=== PATIENT | female | born 1965 | race Caucasian/White ===

== ENCOUNTER 2023-12-28 11:56 | Observation (INO) | payer OTHER ==
[2023-12-28 13:06] LABS: URINE APPEARANCE TURBID; URINE BILIRUBIN SMALL (NEGATIVE); URINE COLOR RED; URINE GLUCOSE (UA) NEGATIVE (NEGATIVE); URINE KETONE NEGATIVE (NEGATIVE)
[2023-12-28 13:07] LABS: HCG,QUALITATIVE URINE Negative; URINE PROTEIN 3+ (NEGATIVE); URINE RBC 1416 /uL (0-23.9); URINE UROBILINOGEN 0.2 mg/dL (0.2-1.0)
[2023-12-28 13:08] LABS: EPI CELLS 8.6 /uL (0-25.1); HYALINE CASTS 31.86 /uL (0-3.1); URINE BACTERIA 402.7 /uL (0-1359); URINE WBC 17 /uL (0-25.8)
[2023-12-28 13:37] LABS: BASO % 0.3 % (0-2.0); EOS % 0.6 % (0-4.5); HEMATOCRIT 36.7 % (32.4-45.2); HEMOGLOBIN 11.6 GM/dL (10.7-15.3); LYMPH % 22.9 % (8-40); MCH 22.5 pg (25.7-33.7); MCHC 31.7 g/dl (32.0-36.0); MEAN CELL VOLUME 70.9 fl (80-96); MEAN PLT VOLUME 8.4 fl (7.5-11.1); MONO % 6.1 % (3.8-10.2); NEUT % 70.1 % (42.8-82.8); PLATELET COUNT 173 10^3/uL (134-434); RBC 5.18 M/mm3 (3.60-5.2); RDW 19.4 % (11.6-15.6); WHITE BLOOD COUNT 5.8 K/mm3 (4.0-10.0)
[2023-12-28 14:09] LABS: INR 1.13 (0.83-1.09); PROTHROMBIN TIME (PATIENT) 12.9 SEC (9.7-13.0)
[2023-12-28 14:11] LABS: ACTIVATED PTT 32.3 SECONDS (25.2-36.5)
[2023-12-28 14:48] LABS: POTASSIUM 5.3 mmol/L (3.5-5.1)
[2023-12-28 14:52] LABS: ALBUMIN 3.7 g/dl (3.4-5.0); BLOOD UREA NITROGEN 11.4 mg/dL (7-18); CALCIUM 8.8 mg/dL (8.5-10.1); MAGNESIUM 2.2 mg/dL (1.8-2.4)
[2023-12-28 14:56] LABS: BILIRUBIN,TOTAL 0.4 mg/dL (0.2-1); CREATININE 0.6 mg/dL (0.55-1.3)
[2023-12-28 14:57] LABS: N-TERMINAL BNP 63.1 pg/ml (5-125)
[2023-12-28 15:01] LABS: HIV INTERPRETATION NEGATIVE (NEGATIVE)
[2023-12-28] MEDS ORDERED: ACETAMINOPHEN INJECTION 100 ML ONE (15:27)
[2023-12-28] MEDS: ACETAMINOPHEN 1000 MG/100 ML BAG IVPB ONE (15:47)
[2023-12-28 15:57] LABS: BASO % 0.3 % (0-2.0); EOS % 0.3 % (0-4.5); HEMATOCRIT 37.7 % (32.4-45.2); HEMOGLOBIN 11.7 GM/dL (10.7-15.3); LYMPH % 15.2 % (8-40); MCH 22.3 pg (25.7-33.7); MCHC 31.1 g/dl (32.0-36.0); MEAN CELL VOLUME 71.7 fl (80-96); MEAN PLT VOLUME 8.6 fl (7.5-11.1); NEUT % 79.2 % (42.8-82.8); PLATELET COUNT 188 10^3/uL (134-434); RBC 5.25 M/mm3 (3.60-5.2); RDW 19.8 % (11.6-15.6); WHITE BLOOD COUNT 8.6 K/mm3 (4.0-10.0)
[2023-12-28 16:15] LABS: POTASSIUM 4.6 mmol/L (3.5-5.1)
[2023-12-28 16:18] LABS: BLOOD UREA NITROGEN 11.2 mg/dL (7-18)
[2023-12-28 16:21] LABS: CREATININE 0.5 mg/dL (0.55-1.3)
[2023-12-28] MEDS ORDERED: CEFTRIAXONE 1 GM/50 ML BAG ONE (17:57)
[2023-12-28] MEDS: CEFTRIAXONE 1 GM in DEXTROSE 5%-WATER - 100 ML IVPB ONE (18:05)
[2023-12-28] MEDS: SODIUM CHLORIDE 0.9% 500 ML INFUS.BAG IV ONE (19:51)
[2023-12-29] MEDS: ACETAMINOPHEN 1000 MG/100 ML BAG IVPB ONE (01:53)
[2023-12-29 07:39] LABS: HEMATOCRIT 36.8 % (32.4-45.2); HEMOGLOBIN 11.4 GM/dL (10.7-15.3); MCH 22.3 pg (25.7-33.7); MCHC 30.9 g/dl (32.0-36.0); MEAN CELL VOLUME 72.1 fl (80-96); MEAN PLT VOLUME 8.8 fl (7.5-11.1); PLATELET COUNT 161 10^3/uL (134-434); RBC 5.11 M/mm3 (3.60-5.2); RDW 19.2 % (11.6-15.6); WHITE BLOOD COUNT 5.3 K/mm3 (4.0-10.0)
[2023-12-29 08:01] LABS: POTASSIUM 4.2 mmol/L (3.5-5.1)
[2023-12-29 08:04] LABS: CALCIUM 8.5 mg/dL (8.5-10.1)
[2023-12-29 08:05] LABS: MAGNESIUM 2.4 mg/dL (1.8-2.4)
[2023-12-29 08:08] LABS: CREATININE 0.5 mg/dL (0.55-1.3); PHOSPHOROUS 2.9 mg/dL (2.5-4.9)
[2023-12-29] MEDS ORDERED: CEFTRIAXONE 1 GM/50 ML BAG ONE (10:04)
[2023-12-29] MEDS: CEFTRIAXONE 1 GM in DEXTROSE 5%-WATER - 50 ML IVPB ONE (10:05)
[2023-12-29] MEDS: LEVOTHYROXINE NA 100 MCG TABLET (FP) PO SCH (10:05)
[2023-12-29] MEDS: POTASSIUM CHLORIDE 10 MEQ in SODIUM CHLORIDE 0.45% 1,000 ML IVPB SCH (10:06)
[2023-12-29] MEDS: D5-1/2NS+10 MEQ KCL - 10 MEQ/1,000 ML INFUS.BAG IV SCH (10:44)
[2023-12-29 22:37] VITALS: BMI 27.6
[2023-12-30] MEDS: CEFTRIAXONE 1 GM in DEXTROSE 5%-WATER - 50 ML IVPB SCH (09:46)
[2023-12-30 12:48] LABS: URINE APPEARANCE CLEAR; URINE BILIRUBIN NEGATIVE (NEGATIVE); URINE COLOR YELLOW; URINE GLUCOSE (UA) NEGATIVE (NEGATIVE); URINE KETONE NEGATIVE (NEGATIVE); URINE LEUK ESTERASE NEGATIVE (NEGATIVE); URINE NITRITE NEGATIVE (NEGATIVE); URINE PROTEIN NEGATIVE (NEGATIVE); URINE UROBILINOGEN 0.2 mg/dL (0.2-1.0)
[2023-12-31 09:05] VITALS: RESP 18
[2023-12-31 10:11] VITALS: BP 98/69; PULSE 65; TEMP 98.2
== END 2023-12-31 18:23 | disposition home or self-care (01) ==
LOC: JER 11:56 → JERBED 19:26 → J4W 12-29 18:16
PROVIDERS: ADMIT Student in an Organized Health Care Education/Training Program; ATTEND Family Medicine
PROC: 3E03329 Introduction of Other Anti-infective into Peripheral Vein, Percutaneous Approach (ICD-10-PCS; principal; 2023-12-28)
PROC: 3E033NZ Introduction of Analgesics, Hypnotics, Sedatives into Peripheral Vein, Percutaneous Approach (ICD-10-PCS; 2023-12-28)
PROC: 3E0337Z Introduction of Electrolytic and Water Balance Substance into Peripheral Vein, Percutaneous Approach (ICD-10-PCS; 2023-12-28)
DX: N39.0 Urinary tract infection, site not specified (principal); D64.9 Anemia, unspecified; E03.9 Hypothyroidism, unspecified; Z72.0 Tobacco use; R31.9 Hematuria, unspecified
CPT/HCPCS: 36415; 71046-TC-FY; 74177-TC; 76775-TC; 76856-TC; 80048; 80053; 80061; 81003; 82550; 83036; 83690; 83735; 83880; 84100; 84156; 84443; 84484; 84703; 85025; 85027; 85379; 85610; 85730; 86803; 86850; 86900; 86901; 87086; 87186; 87389; 93005; 93010; 93306-TC; 99285-25; G0378; J0131; Q9967